=== PATIENT | male | born 1970 | race Caucasian/White ===

== ENCOUNTER 2019-08-09 20:58 | Emergency (ER) | payer BC ==
[~2019-08-09] VITALS: Ht 172.7 cm; Wt 113.4 kg
[2019-08-09 21:24] VITALS: Ht 172.7 cm; Wt 113.4 kg
[2019-08-09 23:06] VITALS: BP 163/87
== END 2019-08-09 23:00 | disposition short-term general hospital (02) ==
LOC: ED 20:58
DX: S42.301B Unspecified fracture of shaft of humerus, right arm, initial encounter for open fracture (principal); S72.91XB Unspecified fracture of right femur, initial encounter for open fracture type I or II; S01.511A Laceration without foreign body of lip, initial encounter; W13.2XXA Fall from, out of or through roof, initial encounter; Y93.89 Activity, other specified; Y92.89 Other specified places as the place of occurrence of the external cause; Y99.8 Other external cause status
CPT/HCPCS: 90715; J0690; J3010; J7030; J7050; P9016; Q0092